=== PATIENT | male | born 2000 | race Caucasian/White ===

== ENCOUNTER 2019-05-19 17:28 | Emergency (ER) | payer OTHER ==
[~2019-05-19] VITALS: Ht 185.4 cm; Wt 93.2 kg
[2019-05-19] MEDS ORDERED: NAPR-837 PO (18:59)
[2019-05-19] MEDS ORDERED: CYCL10TA PO (18:59)
[2019-05-19 19:01] VITALS: BP 140/74
--- NOTE | 2019-05-20 08:37 | REP ---
REASON: Pain after trauma. PRIORS: None. FINDINGS: The compartments are symmetric and relatively well maintained. There is no acute fracture or destructive osseous lesion. Electronically Signed by Mehran Bhat DO 05/20/2019 09:00 A
== END 2019-05-19 19:09 | disposition home or self-care (01) ==
LOC: M ED 17:28
DX: G89.11 Acute pain due to trauma (principal); S39.012A Strain of muscle, fascia and tendon of lower back, initial encounter; S80.01XA Contusion of right knee, initial encounter; V43.02XA Car driver injured in collision with other type car in nontraffic accident, initial encounter; Y92.410 Unspecified street and highway as the place of occurrence of the external cause; Y93.89 Activity, other specified; Y99.8 Other external cause status